=== PATIENT | male | born 1960 | race Caucasian/White ===

== ENCOUNTER 2016-12-26 01:36 | Emergency (ER) | payer BC ==
[2016-12-26] MEDS ORDERED: ACETAMINOPHEN 500 MG TABLET ONE (02:43)
[2016-12-26] MEDS ORDERED: AMOXICILLIN TRIHYDRATE 250 MG CAPSULE ONE (02:43)
[2016-12-26] MEDS ORDERED: IBUPROFEN 600 MG TABLET ONE (02:43)
== END 2016-12-26 03:00 | disposition home or self-care (01) ==
LOC: ED 01:36
DX: H66.91 Otitis media, unspecified, right ear (principal)